=== PATIENT | female | born 1985 | race Caucasian/White ===

== ENCOUNTER → 2018-05-31 16:43 | Outpatient (CLI) | payer OTHER, SELFPAY ==
[2018-05-31 17:45] LABS: Absolute Lymphocyte Count 2.35 X10^3/ul (0.83-4.51); Absolute Neutrophil Count 4.5 X10^3/uL (2.0-7.7); Basophil# 0.01 X10^3/uL; Basophil% 0.1 % (0-1); Eosinophil# 0.18 X10^3/uL; Eosinophils% 2.4 % (0-5); Hematocrit 35.6 % (37-47); Hemoglobin 11.7 g/dl (12.0-15.0); Lymphocyte # 2.35 X10^3/ul (4.0); Lymphocyte % 31.1 % (19-41); Mean Corp Hgb Conc 32.9 g/gl (32-36); Mean Corpuscular Volume 85.2 fL (81-99); Mean Platelet Vol. 10.5 fl (6.2-12.0); Monocyte# 0.54 X10^3/uL; Monocyte% 7.2 % (0-10); Neutrophil # 4.46 X10^3/uL (2.7-7.7); Neutrophil % 59.1 % (47-70); Platelet Count 213 K/mm3 (150-450); RBC Distribution Width CV 13.7 % (11.6-14.6); Red Blood Count 4.18 M/mm3 (4.2-5.4); White Blood Count 7.6 K/mm3 (4.4-11.0)
[2018-05-31 17:49] LABS: POSITIVE COUNT NO; POSITIVE DIFFERENTIAL NO; POSITIVE MORPHOLOGY NO
[2018-05-31 18:21] LABS: Vitamin B12 640 pg/mL (211-911); Vitamin D,25 Hydroxy 16.6 ng/mL (29.95-100.01)
[2018-05-31 18:53] LABS: ALB/GLOB Ratio 1.1 RATIO (0.9-2.4); AST(SGOT) 15 U/L (15-37); Alanine Aminotransfer ALT/SGPT 19 U/L (13-56); Albumin, Serum 4.3 g/dL (3.2-5.0); Alkaline Phosphatase 67 U/L (45-117); Anion Gap 8 (5-15); BUN 9 mg/dL (7-18); BUN/Creat Ratio 12.1 RATIO (10-20); Calcium,Total 8.9 mg/dL (8.5-10.1); Chloride 108 mmol/L (98-107); Creatinine, Serum 0.74 mg/dL (0.55-1.02); EST Glomerular Filtration Rate 96 mL/min (>60); Est Glom Filt Rate - Afr Amer 116 mL/min (>60); Ferritin 4 ng/mL (8-252); Globulin 3.9 g/dL (2.2-4.2); Glucose 78 mg/dL (74-106); Potassium 3.5 mmol/L (3.5-5.1); Protein, Total 8.2 g/dL (6.4-8.2); Sodium Level 141 mmol/L (136-145); T4 Free Direct 1.06 ng/dL (0.76-1.46); Thyroid Stim Hormone (TSH) 0.57 uIU/mL (0.358-3.74)
[2018-06-04 12:07] LABS: Vitamin D 1,25-Dihydroxy 33.5 pg/mL (19.9-79.3)
[2018-06-04 14:07] LABS: ANTINUCLEAR ANTIBODIES DIRECT Negative (Negative)
[2018-06-05 20:06] LABS: DHEA Sulfate 292.6 ug/dL (84.8-378.0); Testosterone, % Free 1.49 % (0.50-2.80); Testosterone, Free 0.39 ng/dL (0.10-0.85); Testosterone, Total 26 ng/dL (8-48)
[2018-06-07 09:03] LABS: Zinc, Plasma or Serum 95 ug/dL (56-134)
== END ==
PROVIDERS: Visit Provider Nurse Practitioner Family
DX: L65.0 Telogen effluvium (principal)
CPT/HCPCS: 36415; 80053; 82306; 82607; 82627; 82652; 82728; 82746; 84402; 84403; 84439; 84443; 84630; 85025; 86038; 82626